=== PATIENT | male | born 1990 | race African-American/Black ===

== ENCOUNTER 2016-04-28 00:13 | Emergency (ER) | payer MEDICAID ==
[~2016-04-28] VITALS: Ht 188 cm; Wt 85.5 kg
[~2016-04-28 00:13] MED LIST: DOXY100T PO; ERYT.5%O RIGHT EYE; GABA600T PO; LISI-360 PO; NOVOLOGP2 SC; SERO300T2 PO
[2016-04-28 00:15] VITALS: BP 129/82; PULSE 104; RESP 18; TEMP 98.7; O2SAT 98
[2016-04-28] MEDS ORDERED: LANTUS2P SQ (00:57)
[2016-04-28] MEDS ORDERED: NOVOLOGP2 SQ (00:57)
[2016-04-28] MEDS ORDERED: SODIUM CHLOR 0.9% 1000 ML INJ 1,000 ML IV ONE ×3 (01:14→01:44)
[2016-04-28] MEDS ORDERED: SODIUM CHLORIDE 0.9% FLUSH 5 ML FLUSH IVF PRN (01:15)
[2016-04-28] MEDS ORDERED: INSULIN HUMAN REGULAR 1,000 UNITS/10 ML VIAL IV PUSH ONE (01:15)
[2016-04-28 01:41] LABS: AUTOMATED NEUTROPHIL # 7.1 TH/MM3 (1.8-7.7); BASOPHIL # 0.1 TH/MM3 (0-0.2); BASOPHIL % 0.7 % (0.0-2.0); EOSINOPHIL # 0.1 TH/MM3 (0-0.4); EOSINOPHIL % 0.9 % (0.0-4.0); HEMATOCRIT 53.7 % (39.0-51.0); HEMO FLAGS DIFF FINAL; LYMPH % 17.8 % (9.0-44.0); LYMPHOCYTE # 1.8 TH/MM3 (1.0-4.8); MEAN CELL VOLUME 95.2 FL (80.0-100.0); MEAN CORPUSCULAR HGB CONC 33.7 % (32.0-36.0); MONO % 8.3 % (0.0-8.0); NEUT % 72.3 % (16.0-70.0); PLATELET COUNT 213 TH/MM3 (150-450); RED BLOOD COUNT 5.64 MIL/MM3 (4.50-5.90); WHITE BLOOD COUNT 9.9 TH/MM3 (4.0-11.0)
[2016-04-28 01:46] VITALS: O2SAT 96
[2016-04-28 01:50] LABS: BLOOD, URINE NEG (NEG); GLUCOSE,URINE 1000 mg/dL (NEG); KETONE, URINE NEG (NEG); NITRITE,URINE NEG (NEG); PH, URINE 6.5 (5.0-8.5); URINE COLOR LIGHT-YELLOW (YELLW/STRAW)
[2016-04-28 01:52] LABS: COMMENT (UR) CULT NOT INDICATED; CULTURE IF INDICATED CULT NOT INDICATED
[2016-04-28 02:15] LABS: ALKALINE PHOSPHATASE 118 U/L (45-117); ALT (GPT) 12 U/L (12-78); ANION GAP 9 MEQ/L (5-15); AST (GOT) 5 U/L (15-37); BETA-HYDROXYBUTYRATE 0.11 MMOL/L (0.00-0.39); BICARBONATE 26.9 MEQ/L (21.0-32.0); BLOOD UREA NITROGEN 10 MG/DL (7-18); CHLORIDE 93 MEQ/L (98-107); GLOMERULAR FILTRATION RATE 85 ML/MIN (>89); POTASSIUM 4.1 MEQ/L (3.5-5.1); SODIUM (NA) 129 MEQ/L (136-145); TOTAL BILIRUBIN ADULT 1.3 MG/DL (0.2-1.0)
--- NOTE | 2016-04-28 02:25 | PD ---
HPI Chief Complaint: Diabetic Time Seen by Provider: 01:14 Travel History International Travel<30 days: No Contact w/Intl Traveler<30days: No Traveled to known affect area: No History of Present Illness HPI 25-year-old male history of insulin-dependent diabetes her as complaining of paresthesias in bilateral lower extremities onset gradual timing constant duration for several hours. Minimal polyuria polydipsia noted lately. Onset gradual. Location endocrine and neurologic. He's had no nausea vomiting or lightheadedness diaphoresis or fever. He reports he has follow-up with the reporting developer in the next week or so to change his insulin regimen. He believes his blood sugars high. he also describes some cephalgia and mild generalized as well as weakness mild generalized. PFSH Past Medical History Bipolar Disorder: Yes Anxiety: No Depression: Yes (past 2 months) Heart Rhythm Problems: No Cancer: No Cardiovascular Problems: Yes (htn) High Cholesterol: Yes Chest Pain: No Congestive Heart Failure: No Diabetes: Yes Patient Takes Glucophage: No Diminished Hearing: No Endocrine: Yes Gastrointestinal Disorders: No Genitourinary: No Hypertension: Yes Immune Disorder: No Implanted Vascular Access Dvce: No Musculoskeletal: No Neurologic: No Psychiatric: No Reproductive: No Respiratory: No Schizophrenia: Yes Past Surgical History Surgical History: No Previous Surgery Other Surgery: No Social History Alcohol Use: Yes (OCC.) Tobacco Use: Yes (1/2 PPD) Substance Use: No Allergies-Medications (Allergen,Severity, Reaction): Coded Allergies: No Known Allergies (Verified , 08/26/15) Reported Meds & Prescriptions Reported Meds & Active Scripts Active Reported Lantus Inj (Insulin Glargine) 1,000 Unit/10 Ml Vial 40 Units SQ BID Novolog Inj (Insulin Aspart) 1,000 Unit/10 Ml Vial 1-9 Units SQ ACHS Max dose at bedtime:( )units; sugars less than 70,(0)units; sugars 150-199,(1) unit; sugars 200-249,(3) units; sugars 250-299,(5) units; sugars 300-349,(7) units; sugars greater than 349,(9) units Review of Systems Except as stated in HPI: all other systems reviewed are Neg Physical Exam Narrative GENERAL: 25-year-old male pleasant SKIN: Warm and dry. HEAD: Atraumatic. Normocephalic. EYES: Pupils equal and round. No scleral icterus. No injection or drainage. ENT: No nasal bleeding or discharge. Mucous membranes pink and moist. NECK: Trachea midline. No JVD. CARDIOVASCULAR: Regular rate and rhythm. RESPIRATORY: No accessory muscle use. Clear to auscultation. Breath sounds equal bilaterally. GASTROINTESTINAL: Abdomen soft, non-tender, nondistended. Hepatic and splenic margins not palpable. MUSCULOSKELETAL: Extremities without clubbing, cyanosis, or edema. No obvious deformities. NEUROLOGICAL: Awake and alert. No obvious cranial nerve deficits. Motor grossly within normal limits. Five out of 5 muscle strength in the arms and legs. Normal speech. PSYCHIATRIC: Appropriate mood and affect; insight and judgment normal. Data Data Last Documented VS Vital Signs Date Time Temp Pulse Resp B/P Pulse Ox O2 Delivery O2 Flow Rate FiO2 04/28/16 01:46 96 Room Air 04/28/16 00:15 98.7 104 18 129/82 Orders Complete Blood Count With Diff (04/28/16 01:14) Comprehensive Metabolic Panel (04/28/16 01:14) Beta Hydroxybutyrate (Acetone) (04/28/16 01:14) Osmolality,Serum (04/28/16 01:14) Urinalysis - C+S If Indicated (04/28/16 01:14) Blood Glucose (04/28/16 01:14) Blood Glucose (04/28/16 02:14) Ecg Monitoring (04/28/16 01:14) Iv Access Insert/Monitor (04/28/16 01:14) Oximetry (04/28/16 01:14) NPO (04/28/16 01:14) Sodium Chlor 0.9% 1000 Ml Inj (Ns 1000 M (04/28/16 01:14) Sodium Chlor 0.9% 1000 Ml Inj (Ns 1000 M (04/28/16 01:44) Sodium Chloride 0.9% Flush (Ns Flush) (04/28/16 01:15) Sodium Chlor 0.9% 1000 Ml Inj (Ns 1000 M (04/28/16 01:14) Insulin Human Regular Inj (Novolin R Inj (04/28/16 01:15) Labs Laboratory Tests Test 04/28/16 04/28/16 01:30 01:42 White Blood Count 9.9 TH/MM3 Red Blood Count 5.64 MIL/MM3 Hemoglobin 18.1 GM/DL Hematocrit 53.7 % Mean Corpuscular Volume 95.2 FL Mean Corpuscular Hemoglobin 32.0 PG Mean Corpuscular Hemoglobin 33.7 % Concent Red Cell Distribution Width 13.0 % Platelet Count 213 TH/MM3 Mean Platelet Volume 9.3 FL Neutrophils (%) (Auto) 72.3 % Lymphocytes (%) (Auto) 17.8 % Monocytes (%) (Auto) 8.3 % Eosinophils (%) (Auto) 0.9 % Basophils (%) (Auto) 0.7 % Neutrophils # (Auto) 7.1 TH/MM3 Lymphocytes # (Auto) 1.8 TH/MM3 Monocytes # (Auto) 0.8 TH/MM3 Eosinophils # (Auto) 0.1 TH/MM3 Basophils # (Auto) 0.1 TH/MM3 CBC Comment DIFF FINAL Differential Comment Sodium Level 129 MEQ/L Potassium Level 4.1 MEQ/L Chloride Level 93 MEQ/L Carbon Dioxide Level 26.9 MEQ/L Anion Gap 9 MEQ/L Blood Urea Nitrogen 10 MG/DL Creatinine 1.24 MG/DL Estimat Glomerular Filtration 85 ML/MIN Rate Random Glucose 518 MG/DL Serum Osmolality 303 MOSM/KG Calcium Level 9.3 MG/DL Total Bilirubin 1.3 MG/DL Aspartate Amino Transf 5 U/L (AST/SGOT) Alanine Aminotransferase 12 U/L (ALT/SGPT) Alkaline Phosphatase 118 U/L Total Protein 7.5 GM/DL Albumin 3.8 GM/DL B-Hydroxybutyrate 0.11 MMOL/L Urine Color LIGHT-YELLOW Urine Turbidity CLEAR Urine pH 6.5 Urine Specific [place] 1.028 Urine Protein NEG mg/dL Urine Glucose (UA) 1000 mg/dL Urine Ketones NEG mg/dL Urine Occult Blood NEG Urine Nitrite NEG Urine Bilirubin NEG Urine Urobilinogen LESS THAN 2.0 MG/DL Urine Leukocyte Esterase NEG Urine WBC LESS THAN 1 /hpf Microscopic Urinalysis Comment CULT NOT INDICATED MDM Medical Decision Making Medical Screen Exam Complete: Yes Emergency Medical Condition: Yes Medical Record Reviewed: Yes Differential Diagnosis DKA, hyperglycemia, electrolyte imbalance Narrative Course CBC & BMP Diagram 04/28/16 01:30 Anion gap 9 LFTs essentially normal 0.11 Urinalysis glucosuria The patient is resting comfortably and feels better, is alert and in no distress. The patients results and examination findings were discussed. The repeat examination is unremarkable and benign. The history, exam, diagnostic testing, and current condition do not suggest any significant pathology to warrant further testing, continued ED treatment, admission, or surgical evaluation at this point. The vital signs have been stable. The patient does not have uncontrollable pain, intractable vomiting, or other significant symptoms. The patient's condition is stable and appropriate for discharge. The patient will pursue further outpatient evaluation with a primary care physician or other designated or consulting physician as indicated in the discharge instructions. The patient expressed understanding and was agreeable with this plan. . Diagnosis Primary Impression: Hyperglycemia due to type 1 diabetes mellitus Additional Impression: Paresthesia Referrals: Blood Splatter Analyst 2 days Additional Instructions: You have a choice when it comes to health care, and we are glad that you chose [facility]. Hopefully, we have met your expectations on today's visit. You are welcome to return to [facility] at any time, as we are committed to meeting the health care needs of our community. Med/Other Pt SpecificInfo: No Change to Meds Disposition: 01 DISCHARGE HOME Condition: Stable Juaquin Mckinnon MD Apr 28, 2016 02:25
== END 2016-04-28 02:38 | disposition home or self-care (01) ==
LOC: NEPC 00:13
DX: E11.65 Type 2 diabetes mellitus with hyperglycemia (principal); R20.2 Paresthesia of skin; E78.00 Pure hypercholesterolemia, unspecified; I10 Essential (primary) hypertension; Z79.4 Long term (current) use of insulin; F17.210 Nicotine dependence, cigarettes, uncomplicated
CPT/HCPCS: 80053; 81001; 82010; 83930; 85025; 96361; 96374; 99284; J1815; J7030

== ENCOUNTER 2016-05-04 11:25 | Emergency (ER) | payer MEDICAID ==
[~2016-05-04] VITALS: Ht 188 cm; Wt 85.0 kg
[~2016-05-04 11:25] MED LIST changes: -DOXY100T PO; -ERYT.5%O RIGHT EYE; -GABA600T PO; +LANTUS2P SQ; -LISI-360 PO; -NOVOLOGP2 SC; +NOVOLOGP2 SQ; -SERO300T2 PO
[2016-05-04 11:27] VITALS: BP 142/85; PULSE 96; RESP 12; TEMP 97.9; O2SAT 97
[2016-05-04] MEDS ORDERED: AMOX875T PO (12:21)
--- NOTE | 2016-05-04 12:21 | PD ---
HPI Chief Complaint: Cold / Flu Symptoms Time Seen by Provider: 12:02 Travel History International Travel<30 days: No Contact w/Intl Traveler<30days: No Traveled to known affect area: No History of Present Illness HPI Patient is a 25 year old male who presents emergency department for evaluation of sinus pain, pressure, nasal congestion. Patient states his symptoms have been ongoing for over one week. He reports taking Yumiko-[place] with no relief of his symptoms. He denies any fever, chills, nausea, vomiting, shortness of breath or chest pain. He does report sinus pressure and feeling as if his eyes are heavy. He denies any visual changes or photophobia. PFSH Past Medical History Bipolar Disorder: Yes Anxiety: No Depression: Yes (past 2 months) Heart Rhythm Problems: No Cancer: No Cardiovascular Problems: Yes (htn) High Cholesterol: Yes Chest Pain: No Congestive Heart Failure: No Diabetes: Yes Diminished Hearing: No Endocrine: Yes Gastrointestinal Disorders: No Genitourinary: No Hypertension: Yes Immune Disorder: No Implanted Vascular Access Dvce: No Musculoskeletal: No Neurologic: No Psychiatric: No Reproductive: No Respiratory: No Schizophrenia: Yes Past Surgical History Other Surgery: No Social History Alcohol Use: Yes (OCC.) Tobacco Use: Yes (1/2 PPD) Substance Use: No Allergies-Medications (Allergen,Severity, Reaction): Coded Allergies: No Known Allergies (Verified , 08/26/15) Reported Meds & Prescriptions Reported Meds & Active Scripts Active Reported Lantus Inj (Insulin Glargine) 1,000 Unit/10 Ml Vial 40 Units SQ BID Novolog Inj (Insulin Aspart) 1,000 Unit/10 Ml Vial 1-9 Units SQ ACHS Max dose at bedtime:( )units; sugars less than 70,(0)units; sugars 150-199,(1) unit; sugars 200-249,(3) units; sugars 250-299,(5) units; sugars 300-349,(7) units; sugars greater than 349,(9) units Review of Systems Except as stated in HPI: all other systems reviewed are Neg HENT: Positive: Headaches, Rhinitis, Congestion Physical Exam Narrative GENERAL: Well-nourished, well-developed patient. SKIN: Warm and dry. HEAD: Normocephalic. Tenderness palpation over maxillary sinuses. EYES: No scleral icterus. No injection or drainage. ENT: Mucosa pink and moist. No erythema or exudates. No uvular edema. No uvular , palatal, or tonsillar deviation. Airway patent. Nasal turbinates appear normal without nasal blood, purulent drainage or septal hematoma. NECK: Supple, trachea midline. No JVD or lymphadenopathy. CARDIOVASCULAR: Regular rate and rhythm without murmurs, gallops, or rubs. RESPIRATORY: Breath sounds equal bilaterally. No accessory muscle use. GASTROINTESTINAL: Abdomen soft, non-tender, nondistended. MUSCULOSKELETAL: No cyanosis, or edema. BACK: Nontender without obvious deformity. No CVA tenderness. Data Data Last Documented VS Vital Signs Date Time Temp Pulse Resp B/P Pulse Ox O2 Delivery O2 Flow Rate FiO2 05/04/16 11:27 97.9 96 12 142/85 97 Room Air [facility] Medical Decision Making Medical Screen Exam Complete: Yes Emergency Medical Condition: Yes Interpretation(s) Vital Signs Date Time Temp Pulse Resp B/P Pulse Ox O2 Delivery O2 Flow Rate FiO2 05/04/16 11:27 97.9 96 12 142/85 97 Room Air Differential Diagnosis Viral URI versus viral syndrome versus sinusitis versus other Narrative Course Patient is a 25-year-old male who presents emergency evaluation of sinus pain and pressure. Patient has been trialing symptom management for over a week with Yumiko-[place] cold and flu with no relief of his symptoms. Patient's vital signs are stable, he is afebrile. He has tenderness palpation over maxillary sinuses. Patient will be provided with a prescription for antibiotics at this time. He was further encouraged to obtain [id number] Sudafed or similar agent. He is encouraged to complete full course of antibiotics as prescribed. He is encouraged to return to emergency department any new or worsening symptoms. Patient verbalizes understanding of these instructions. Patient stable for discharge. Diagnosis Primary Impression: Sinusitis Qualified Code: J32.0 - Maxillary sinusitis, unspecified chronicity Referrals: Primary Care Physician Patient Instructions: General Instructions, Sinusitis (ED) Additional Instructions: Follow-up with a primary doctor Take medications as directed Return to emergency department with any new or worsening symptoms Obtain [id number] Sudafed or similar nasal decongestant and use as directed and as needed Med/Other Pt SpecificInfo: Prescription(s) given Scripts Amoxicillin 875 Mg [id number] Mg PO BID 10 Days Ref 0 Prov:Tiffanie Pope 05/04/16 Disposition: 01 DISCHARGE HOME Condition: Stable Tiffanie Pope May 04, 2016 12:21
== END 2016-05-04 12:47 | disposition home or self-care (01) ==
LOC: NEPB 11:25
DX: J32.0 Chronic maxillary sinusitis (principal); F17.200 Nicotine dependence, unspecified, uncomplicated
CPT/HCPCS: 99283

== ENCOUNTER 2016-09-30 02:39 | Emergency (ER) | payer MEDICAID ==
[~2016-09-30] VITALS: Ht 182.9 cm; Wt 80.0 kg
[~2016-09-30 02:39] MED LIST changes: +AMOX875T PO
[2016-09-30 02:44] VITALS: BP 121/70; PULSE 75; RESP 15; TEMP 97.9; O2SAT 100
[2016-09-30] MEDS ORDERED: GABA800T PO ×2 (02:56→02:59)
[2016-09-30] MEDS ORDERED: LANTUS2P SQ (02:56)
--- NOTE | 2016-09-30 03:02 | PD ---
HPI Chief Complaint: Medication Refill Request Time Seen by Provider: 03:00 Travel History International Travel<30 days: No Contact w/Intl Traveler<30days: No Traveled to known affect area: No History of Present Illness HPI 26-year-old black male presents to emergency Department with requests a refill of his gabapentin for his diabetic neuropathy. He states that he ran out of his medications prematurely because he has been taking it more than prescribed. His doctor will not refill his medications until the prescription is scheduled to be refilled. He denies any fever or chills. No trauma. He states that he has been taking it 1-2 a day that he's posted. PFSH Past Medical History Bipolar Disorder: Yes Anxiety: No Depression: Yes (past 2 months) Heart Rhythm Problems: No Cancer: No Cardiovascular Problems: Yes (htn) High Cholesterol: Yes Chest Pain: No Congestive Heart Failure: No Diabetes: Yes Patient Takes Glucophage: No Diminished Hearing: No Endocrine: Yes Gastrointestinal Disorders: No Genitourinary: No Hypertension: Yes Immune Disorder: No Implanted Vascular Access Dvce: No Musculoskeletal: No Neurologic: No Psychiatric: No Reproductive: No Respiratory: No Schizophrenia: Yes Past Surgical History Surgical History: No Previous Surgery Other Surgery: No Social History Alcohol Use: Yes (OCC.) Tobacco Use: Yes (1/2 PPD) Substance Use: No Allergies-Medications (Allergen,Severity, Reaction): Coded Allergies: No Known Allergies (Verified , 09/30/16) Reported Meds & Prescriptions Reported Meds & Active Scripts Active Gabapentin 800 Mg Tab 800 Mg PO TID Reported Lantus Inj (Insulin Glargine) 1,000 Unit/10 Ml Vial 40 Units SQ BID Gabapentin 800 Mg Tab 800 Mg PO TID Novolog Inj (Insulin Aspart) 1,000 Unit/10 Ml Vial 1-9 Units SQ ACHS Max dose at bedtime:( )units; sugars less than 70,(0)units; sugars 150-199,(1) unit; sugars 200-249,(3) units; sugars 250-299,(5) units; sugars 300-349,(7) units; sugars greater than 349,(9) units Review of Systems Except as stated in HPI: all other systems reviewed are Neg Physical Exam Narrative GENERAL: This is a well-nourished, well-developed patient, in no apparent distress. SKIN: No rashes, ecchymoses or lesions. Warm and dry. HEAD: Atraumatic. Normocephalic. EYES: PERRL, EOMI, no discharge or injection. No scleral icterus. EARS: Clear NOSE: Nasal turbinates appear normal. THROAT: Mucosa pink and moist. Airway patent. NECK: Trachea midline. supple, moves head freely. LUNGS: Clear to auscultation. CV: Regular in rhythm. ABDOMEN: Soft nontender. EXT: No clubbing cyanosis or edema. Data Data Last Documented VS Vital Signs Date Time Temp Pulse Resp B/P Pulse Ox O2 Delivery O2 Flow Rate FiO2 09/30/16 02:44 97.9 75 15 121/70 100 Room Air MDM Medical Decision Making Medical Screen Exam Complete: Yes Emergency Medical Condition: Yes Medical Record Reviewed: Yes Differential Diagnosis Differential diagnosis Diabetes, neuropathy, medication refill Narrative Course Patient is given a ten-day supply of his gabapentin Diagnosis Primary Impression: Diabetic neuropathy Qualified Code: E10.42 - Diabetic polyneuropathy associated with type 1 diabetes mellitus Additional Impression: Medication refill Patient Instructions: General Instructions Departure Forms: Tests/Procedures, Work Release Special Instructions: No work 09/30/16 Additional Instructions: Medications as directed. Follow-up with your doctor for further refills. Med/Other Pt SpecificInfo: Prescription(s) given Scripts Gabapentin 800 Mg [id number] Mg PO TID #30 TAB Ref 0 Prov:Taylor Eddy DO 09/30/16 Disposition: 01 DISCHARGE HOME Condition: Stable Freddie Romero Sep 30, 2016 03:02
[2016-09-30] MEDS ORDERED: GABAPENTIN 400 MG CAP PO SCH (03:15)
== END 2016-09-30 03:26 | disposition home or self-care (01) ==
LOC: NEPD 02:39
DX: E11.40 Type 2 diabetes mellitus with diabetic neuropathy, unspecified (principal); F31.9 Bipolar disorder, unspecified; I10 Essential (primary) hypertension; E78.00 Pure hypercholesterolemia, unspecified; E11.9 Type 2 diabetes mellitus without complications; F20.9 Schizophrenia, unspecified; F17.200 Nicotine dependence, unspecified, uncomplicated; Z76.0 Encounter for issue of repeat prescription; Z79.4 Long term (current) use of insulin; Z79.899 Other long term (current) drug therapy
CPT/HCPCS: 99281

== ENCOUNTER 2016-10-21 00:35 | Emergency (ER) | payer MEDICAID ==
[~2016-10-21] VITALS: Ht 188 cm; Wt 77.5 kg
[~2016-10-21 00:35] MED LIST changes: -AMOX875T PO; +GABA800T PO
[2016-10-21 00:40] VITALS: BP 126/72; PULSE 93; RESP 18; TEMP 98; O2SAT 100
[2016-10-21] MEDS ORDERED: SODIUM CHLOR 0.9% 1000 ML INJ 1,000 ML IV ONE (00:53)
[2016-10-21] MEDS ORDERED: LANTUS2P SQ (00:58)
[2016-10-21] MEDS ORDERED: LISI10TA3 PO (00:58)
[2016-10-21] MEDS ORDERED: FENO1TAB46 PO (00:58)
[2016-10-21] MEDS ORDERED: SODIUM CHLORIDE 0.9% FLUSH 10 ML FLUSH IVF PRN (01:00)
--- NOTE | 2016-10-21 01:33 | RADRPT ---
EXAM DATE/TIME: 10/21/2016 01:13 [place] COMPARISON: No previous studies available for comparison. INDICATIONS : Seizure. RADIATION DOSE: 38.74 CTDIvol (mGy) MEDICAL HISTORY : Hypertension. Diabetes mellitus type 2. SURGICAL HISTORY : None. ENCOUNTER: Initial ACUITY: 1 day PAIN SCALE: 0/10 LOCATION: cranial TECHNIQUE: Multiple contiguous axial images were obtained of the head. Using automated exposure control and adj ustment of the mA and/or kV according to patient size, radiation dose was kept as low as reasonably a chievable to obtain optimal diagnostic quality images. DICOM format image data is available electro nically for review and comparison. FINDINGS: CEREBRUM: The ventricles are normal for age. No evidence of midline shift, mass lesion, hemorrhage or acute in farction. No extra-axial fluid collections are seen. POSTERIOR FOSSA: The cerebellum and brainstem are intact. The 4th ventricle is midline. The cerebellopontine angle i s unremarkable. EXTRACRANIAL: The visualized portion of the orbits is intact. There is complete opacification of the right maxillar y sinus and right frontal sinus with near-complete opacification of the right ethmoid sinus SKULL: The calvaria is intact. No evidence of skull fracture. CONCLUSION: 1. Unremarkable CT scan of the brain. 2. Prominent chronic sinus disease involving the right frontal, right ethmoid and right maxillary sin uses. Reymundo Prieto MD on October 21, 2016 at 1:28 Board Certified Radiologist. This report was verified electronically.
[2016-10-21 01:50] LABS: AMPHETAMINE, URINE NEG (NEG); BARBITURATES, URINE NEG (NEG); COCAINE, URINE NEG (NEG)
[2016-10-21 01:51] LABS: AUTOMATED NEUTROPHIL # 4.7 TH/MM3 (1.8-7.7); BASOPHIL % 0.4 % (0.0-2.0); EOSINOPHIL # 0.1 TH/MM3 (0-0.4); EOSINOPHIL % 1.3 % (0.0-4.0); HEMATOCRIT 46.9 % (39.0-51.0); HEMO FLAGS DIFF FINAL; LYMPH % 32.2 % (9.0-44.0); LYMPHOCYTE # 2.6 TH/MM3 (1.0-4.8); MEAN CELL VOLUME 95.6 FL (80.0-100.0); MEAN CORPUSCULAR HEMOGLOBIN 30.9 PG (27.0-34.0); MEAN CORPUSCULAR HGB CONC 32.4 % (32.0-36.0); MONO % 7.2 % (0.0-8.0); NEUT % 58.9 % (16.0-70.0); PLATELET COUNT 185 TH/MM3 (150-450); RED BLOOD COUNT 4.91 MIL/MM3 (4.50-5.90); RED CELL DISTRIBUTION WIDTH 12.8 % (11.6-17.2); WHITE BLOOD COUNT 8.1 TH/MM3 (4.0-11.0)
[2016-10-21 02:26] LABS: ANION GAP 15 MEQ/L (5-15); BICARBONATE 23.9 MEQ/L (21.0-32.0); BLOOD UREA NITROGEN 11 MG/DL (7-18); CHLORIDE 105 MEQ/L (98-107); GLOMERULAR FILTRATION RATE 111 ML/MIN (>89); SODIUM (NA) 144 MEQ/L (136-145)
[2016-10-21 02:36] LABS: POTASSIUM 2.9 MEQ/L (3.5-5.1)
--- NOTE | 2016-10-21 02:58 | PD ---
HPI Chief Complaint: Seizure Time Seen by Provider: 00:45 Travel History International Travel<30 days: No Contact w/Intl Traveler<30days: No Traveled to known affect area: No History of Present Illness HPI Patient's 26 years old. He was observed with tonic-clonic seizure-like activity witnessed by his significant other. EMS reports a postictal state on scene. His vital signs were normal on scene. He has no prior history of epilepsy/seizure. He reports a history of diabetes and has been compliant with his insulin regimen as well as dietary guidelines. He denies any recent hypoglycemia. He denies drug and alcohol abuse. PFSH Past Medical History Bipolar Disorder: Yes Anxiety: No Depression: Yes (past 2 months) Heart Rhythm Problems: No Cancer: No Cardiovascular Problems: Yes (HTN ) High Cholesterol: Yes Chest Pain: No Congestive Heart Failure: No Diabetes: Yes (takes lantus BID & Novolog SSI) Diminished Hearing: No Endocrine: Yes Gastrointestinal Disorders: No Genitourinary: No Hypertension: Yes Immune Disorder: No Implanted Vascular Access Dvce: No Musculoskeletal: No Neurologic: No Psychiatric: No Reproductive: No Respiratory: No Schizophrenia: Yes Past Surgical History Other Surgery: No Social History Alcohol Use: Yes (OCC.) Tobacco Use: Yes (1/2 PPD) Substance Use: No Allergies-Medications (Allergen,Severity, Reaction): Coded Allergies: No Known Allergies (Verified , 10/21/16) Reported Meds & Prescriptions Reported Meds & Active Scripts Active Reported Fenofibrate Unknown Strength Tab Unknown Dose PO DAILY Lisinopril 10 Mg Tab 10 Mg PO DAILY Lantus Inj (Insulin Glargine) 1,000 Unit/10 Ml Vial 50 Units SQ BID Gabapentin 800 Mg Tab 800 Mg PO TID Novolog Inj (Insulin Aspart) 1,000 Unit/10 Ml Vial 1-9 Units SQ ACHS Max dose at bedtime:( )units; sugars less than 70,(0)units; sugars 150-199,(1) unit; sugars 200-249,(3) units; sugars 250-299,(5) units; sugars 300-349,(7) units; sugars greater than 349,(9) units Review of Systems Except as stated in HPI: all other systems reviewed are Neg General / Constitutional: No: Fever Neurologic: Positive: Seizures Physical Exam Narrative GENERAL: 26-year-old male well-nourished well-developed no acute distress SKIN: Warm and dry. HEAD: Atraumatic. Normocephalic. EYES: Pupils equal and round. No scleral icterus. No injection or drainage. ENT: No nasal bleeding or discharge. Mucous membranes pink and moist. NECK: Trachea midline. No JVD. CARDIOVASCULAR: Regular rate and rhythm. RESPIRATORY: No accessory muscle use. Clear to auscultation. Breath sounds equal bilaterally. GASTROINTESTINAL: Abdomen soft, non-tender, nondistended. Hepatic and splenic margins not palpable. MUSCULOSKELETAL: Extremities without clubbing, cyanosis, or edema. No obvious deformities. NEUROLOGICAL: Awake and alert. No obvious cranial nerve deficits. Motor grossly within normal limits. Five out of 5 muscle strength in the arms and legs. Normal speech. PSYCHIATRIC: Appropriate mood and affect; insight and judgment normal. Data Data Last Documented VS Vital Signs Date Time Temp Pulse Resp B/P Pulse Ox O2 Delivery O2 Flow Rate FiO2 10/21/16 00:40 98.0 93 18 126/72 100 Vital signs reviewed Orders Complete Blood Count With Diff (10/21/16 00:53) Basic Metabolic Panel (Bmp) (10/21/16 00:53) Alcohol (Ethanol) (10/21/16 00:53) Drug Screen, Random Urine (10/21/16 00:53) Electrocardiogram (10/21/16 ) Ct Brain W/O Iv Contrast(Rout) (10/21/16 ) Blood Glucose (10/21/16 00:53) Ecg Monitoring (10/21/16 00:53) Iv Access Insert/Monitor (10/21/16 00:53) Oximetry (10/21/16 00:53) Sodium Chlor 0.9% 1000 Ml Inj (Ns 1000 M (10/21/16 00:53) Sodium Chloride 0.9% Flush (Ns Flush) (10/21/16 01:00) Blood Glucose (10/21/16 02:53) Potassium Chloride (Kcl) (10/21/16 03:00) Labs Laboratory Tests Test 10/21/16 01:20 White Blood Count 8.1 TH/MM3 Red Blood Count 4.91 MIL/MM3 Hemoglobin 15.2 GM/DL Hematocrit 46.9 % Mean Corpuscular Volume 95.6 FL Mean Corpuscular Hemoglobin 30.9 PG Mean Corpuscular Hemoglobin 32.4 % Concent Red Cell Distribution Width 12.8 % Platelet Count 185 TH/MM3 Mean Platelet Volume 8.7 FL Neutrophils (%) (Auto) 58.9 % Lymphocytes (%) (Auto) 32.2 % Monocytes (%) (Auto) 7.2 % Eosinophils (%) (Auto) 1.3 % Basophils (%) (Auto) 0.4 % Neutrophils # (Auto) 4.7 TH/MM3 Lymphocytes # (Auto) 2.6 TH/MM3 Monocytes # (Auto) 0.6 TH/MM3 Eosinophils # (Auto) 0.1 TH/MM3 Basophils # (Auto) 0.0 TH/MM3 CBC Comment DIFF FINAL Differential Comment Sodium Level 144 MEQ/L Potassium Level 2.9 MEQ/L Chloride Level 105 MEQ/L Carbon Dioxide Level 23.9 MEQ/L Anion Gap 15 MEQ/L Blood Urea Nitrogen 11 MG/DL Creatinine 0.98 MG/DL Estimat Glomerular Filtration 111 ML/MIN Rate Random Glucose 20 MG/DL Calcium Level 9.0 MG/DL Urine Opiates Screen NEG Urine Barbiturates Screen NEG Urine Amphetamines Screen NEG Urine Benzodiazepines Screen NEG Urine Cocaine Screen NEG Urine Cannabinoids Screen POS Ethyl Alcohol Level LESS THAN 3 MG/DL MDM Medical Decision Making Medical Screen Exam Complete: Yes Emergency Medical Condition: Yes Medical Record Reviewed: Yes Differential Diagnosis Seizure, hypoglycemia, electrolyte imbalance, arrhythmia Narrative Course CBC & BMP Diagram 10/21/16 01:20 Last [address] 10/21/16 0000 Signed Impressions: Service Date/Time: October 01:13 - CONCLUSION: 1. Unremarkable CT scan of the brain. 2. Prominent chronic sinus disease involving the right frontal, right ethmoid and right maxillary sinuses. Reymundo Prieto MD A stat repeat bedside glucose revealed a level of 90. Upon arrival blood glucose is 80. I believe the chemistry results are spurious. The patient states he does not feel as though his blood sugar is low. The EKG reveals a normal sinus rhythm with no preexcitation morphology. Potassium has been replenished. Follow-up with primary care provider. Return precautions discussed. Diagnosis Primary Impression: Seizure Additional Impression: Hypokalemia Referrals: DR TAVERA 2 days Additional Instructions: You have a choice when it comes to health care, and we are glad that you chose [facility]. Hopefully, we have met your expectations on today's visit. You are welcome to return to [facility] at any time, as we are committed to meeting the health care needs of our community. Med/Other Pt SpecificInfo: No Change to Meds Scripts Potassium Chloride Liq 20 Meq/15 Ml Soln20 Meq PO DAILY 3 Days Ref 0 Prov:Juaquin Mckinnon MD 10/21/16 Disposition: 01 DISCHARGE HOME Condition: Stable Juaquin Mckinnon MD Oct 21, 2016 02:58
[2016-10-21] MEDS ORDERED: POTA10SO12 PO (02:59)
[2016-10-21] MEDS ORDERED: POTASSIUM CHLORIDE 20 MEQ CONTROLLED RELEASE TAB PO ONE (03:00)
[2016-10-21 03:25] VITALS: O2SAT 99
--- NOTE | 2016-10-21 14:59 | EKG ---
Date Performed: 10/21/2016 Time Performed: 01:35:07 PTAGE: 26 years EKG: Sinus rhythm ST DEVIATION AND MODERATE T-WAVE ABNORMALITY, CONSIDER LATERAL ISCHEMIA ABNORMAL ECG Compared to ayesha or tracing no significant change PREVIOUS TRACING : 06/25/14 DOCTOR: Mini Hdez Interpretating Date/Time 10/21/2016 14:55:55
== END 2016-10-21 03:40 | disposition home or self-care (01) ==
LOC: NEPE 00:35
DX: R56.9 Unspecified convulsions (principal); E87.6 Hypokalemia
CPT/HCPCS: 70450; 80048; 80307; 85025; 93005; 96360; 99285; J7030